=== PATIENT | female | born 1950 | race Caucasian/White ===

== ENCOUNTER → 2024-05-29 11:05 | Outpatient (REF) | payer MEDICARE, OTHER, SELFPAY | LOC: WDC 11:05 | PROVIDERS: ATTENDING PHYSICIAN Nurse Practitioner Adult Health; FAMILY PHYSICIAN Internal Medicine | DX: Z12.31 Encounter for screening mammogram for malignant neoplasm of breast (principal) | CPT/HCPCS: 77063; 77067 ==

== ENCOUNTER → 2025-02-13 08:16 | Outpatient (REF) | payer MEDICARE, OTHER, SELFPAY | LOC: RCS 08:16 | PROVIDERS: ATTENDING PHYSICIAN Family Medicine | DX: R07.89 Other chest pain (principal); Z82.49 Family history of ischemic heart disease and other diseases of the circulatory system | CPT/HCPCS: 93017; 93350 ==

== ENCOUNTER 2025-03-09 06:24 | Day surgery (SDC) | payer MEDICARE, OTHER, SELFPAY | END 2025-03-09 15:37 | disposition home or self-care (01) | LOC: GI 06:24 | PROVIDERS: ATTENDING PHYSICIAN Internal Medicine Gastroenterology | DX: K22.89 Other specified disease of esophagus (principal); K44.9 Diaphragmatic hernia without obstruction or gangrene; K21.00 Gastro-esophageal reflux disease with esophagitis, without bleeding | CPT/HCPCS: 43239; 88305 ==

== ENCOUNTER → 2025-05-16 12:56 | Outpatient (REF) | payer MEDICARE, OTHER, SELFPAY | LOC: HWRAD 12:56 | PROVIDERS: ATTENDING PHYSICIAN Family Medicine | DX: E78.00 Pure hypercholesterolemia, unspecified (principal) | CPT/HCPCS: 75571 ==

== ENCOUNTER → 2025-06-04 13:58 | Outpatient (REF) | payer MEDICARE, OTHER, SELFPAY | LOC: WDC 13:58 | PROVIDERS: ATTENDING PHYSICIAN Nurse Practitioner Adult Health; FAMILY PHYSICIAN Family Medicine; OTHER PHYSICIAN Physician Assistant | DX: M81.0 Age-related osteoporosis without current pathological fracture (principal); Z12.31 Encounter for screening mammogram for malignant neoplasm of breast | CPT/HCPCS: 77063; 77067; 77080 ==

== ENCOUNTER 2025-06-08 07:57 | Emergency (ER) | payer MEDICARE, OTHER, SELFPAY ==
[2025-06-08 07:58] VITALS: BP 179/83
--- NOTE | 2025-06-08 08:22 | ED.GENMED ---
History of Present Illness
General
Chief Complaint: Chest Pain
Source: patient
Exam Limitations: none
Time Seen by Provider: 06/08/25 08:22
Nursing documentation reviewed up to this point in time: agreed with
History of Present Illness
History of Present Illness:
75-year-old female with no clinically significant past medical history presents for chest pain. She states 9 AM yesterday while she was walking one of her horses up an incline she developed left upper chest pressure 5/10 which then waxed and waned
all day up to bedtime, it woke her at 4 AM with a pressure sensation in her left jaw. She states the symptoms are present now but to a lesser extent. She also felt a little more short of breath yesterday associated with the symptoms. She denies
feeling lightheaded or dizzy or weak.
Past History
Past History
ED Past Medical History: None
ED Past Surgical History: Orthopedic
Social History
Tobacco: Non-smoker
Alcohol: Occasional
Personal:
Living: alone
Review of Systems
Review of Systems
Allergies reviewed?: Yes
All Other Systems: ROS reviewed and negative except as documented in HPI and ROS
Constitutional: Denies fever or fatigue
Respiratory: Denies trouble breathing
Cardiac: Reports chest pain (very mild now left upper chest and teodora); Denies diaphoresis or palpitations
ABD/GI: Denies abdominal pain or nausea
Musculoskeletal: Reports no symptoms
Skin: Reports no symptoms
Neurological: Reports no symptoms
Phy Exam
Physical Exam
Physical Exam:
GENERAL: No acute distress. A&Ox3.
CONSTITUTIONAL: Afebrile.
EYES: clear, conjunctivae normal
ENMT: moist mucus membranes
RESPIRATORY: Regular respirations, nonlabored, lungs clear.
CARDIOVASCULAR: Regular rate and rhythm, no murmurs, no rubs.
GI: Soft, nontender
MUSCULOSKELETAL: Moves with ease. Well perfused.
SKIN: Warm, dry, pink
PSYCH: Normal mood and affect. Well kept, interactive and appropriate
NEUROLOGIC: Awake, alert and oriented. No focal neurological deficits
Scores
Heart Score for Chest Pain Patients
STEMI patient?: Not applicable
Course
Orders/Labs/Results
Orders:
Orders
06/08/25 08:00
Electrocardiogram (*1) Urgent
Reason for Study: Chest Pain
EKG- Treatment ONCE
06/08/25 08:41
CR Chest - 2 Views Urgent
Comment:
Reason For Exam: suspected infection
06/08/25 09:43
Complete Blood Count/With Diff Urgent
Comprehensive Metabolic Panel Urgent
Troponin I Urgent
06/08/25 09:46
Aspirin Chewable [Low Strength Aspirin] 324 mg PO NOW STA
06/08/25 12:24
Troponin I Urgent
06/08/25 12:29
Electrocardiogram (*1) Urgent
Reason for Study: Chest Pain
06/08/25 12:30
EKG- Treatment ONCE
Abnormal Lab Results
06/08/25
09:43
MCHC 32.8 L g/dL
(33.0-37.0)
Chloride 108 H mmol/L
(98-107)
Creatinine 0.5 L mg/dL
(0.6-1.0)
Total Bilirubin 1.4 H mg/dl
(0.2-1.3)
06/08/25 09:43
06/08/25 09:43
Vital Signs
Initial and Last Documented VS:
Initial Vital Signs
Temp Pulse Resp BP Pulse Ox
98.2 F 60 16 179/83 99
06/08/25 07:58 06/08/25 07:58 06/08/25 07:58 06/08/25 07:58 06/08/25 07:58
Last Documented Vital Signs
Temp Pulse Resp BP Pulse Ox
98.2 F 61 24 168/76 100
06/08/25 07:58 06/08/25 13:00 06/08/25 13:00 06/08/25 13:00 06/08/25 11:47
MDM/Problems Addressed
Differential Diagnosis Includes:
ACS, NE, unstable angina
MDM/Problems Addressed:
75-year-old female with no clinically significant past medical history presents for chest pain. She states 9 AM yesterday while she was walking one of her horses up an incline she developed left upper chest pressure 5/10 which then waxed and waned
all day up to bedtime, it woke her at 4 AM with a pressure sensation in her left jaw. She states the symptoms are present now but to a lesser extent. She also felt a little more short of breath yesterday associated with the symptoms. She denies
feeling lightheaded or dizzy or weak.
She took a baby aspirin this morning
EKG: Sinus bradycardia with a rate of 57
Chest x-ray: NAD
9:50 a.m.
In to re evaluate, pt asymptomatic at this time
10:00 AM:
CBC, CMP normal
Troponin normal
1:10 PM:
Troponin #2 within normal limits
EKG unchanged
She has a scheduled cardiac appointment for July 05 Dr. Baldwin, I will send her information to the cardiac hotline for a sooner appointment.
Patient stable for discharge
*Pulse Oximetry
SaO2: 99
Oxygen Mode of Delivery: Room air
Patient hypoxic: no
*EKG
EKG Intrepretation Date: 06/08/25
Interpretation: abnormal
Comparison EKG: no changes
Heart Rate: 57
Rate: bradycardiac
Rhythm: sinus
[place]: normal axis
Interval: normal interval
QRS Pattern: normal QRS
Ischemia: no ischemia
*Critical Care Note
Total Time (30-74mins, 75-104mins- exclusive of procedures): Not Applicable
ED Attending Note
-
Portions of this chart may have been created with voice recognition software.� Occasional wrong word or��sound alike� substitutions may have occurred due to the inherent limitations of voice recognition software.
Discharge Plan
Departure
Patient Disposition: Home (Routine Discharge)
Date of Disposition: 06/08/25
Time of Disposition: 13:11
Patient with high blood pressure during this ER visit?: No
Condition: Good
Discharge Problem:
Atypical chest pain
Instructions: Chest Pain DCA Follow Up
Prescriptions:
No Action
prochlorperazine maleate 10 MG tablet
10 mg PO Q8HPRN PRN (Reason: headache and nausea) Qty: 12 0RF
Referrals:
Rupinder Pham MD [Family Provider, [facility]]
Activity Restrictions/Additional Instructions:
As we discussed, nothing worrisome in your workup here today. Specifically no sign of a heart attack
I sent your contact information to the [facility], someone should be calling you within the next 2 days to determine if your appointment can be moved up.
Return here immediately for worsening chest pain, chest pain associate with shortness of breath, feeling weak or dizzy, nausea or vomiting or feeling sicker in any way.
Interventions
Interventions:
*Risk Screen - Suicide Last Done: 06/08/25 07:58
*Neglect/Abuse Screening Last Done: 06/08/25 07:58
Discharge Date and Time
Print Language: SUDANESE
[2025-06-08 09:57] LABS: Hematocrit 39.6 % (37.0-47.0); Hemoglobin 13.0 g/dL (12.0-16.0); Mean Corp Hgb Conc. 32.8 g/dL (33.0-37.0); Mean Corpuscular Volume 92.1 fL (81.0-99.0); Nucleated Red Blood Cells % 0 %; Platelet Count 225 10^3/uL (130-400); Red Cell Dist. Width 13.5 % (11.5-14.5)
[2025-06-08 10:18] LABS: ALT (SGPT) 24 U/L (0-35); AST (SGOT) 25 U/L (14-36); Albumin 4.2 g/dl (3.5-5.0); Alkaline Phosphatase 51 U/L (38-126); Blood Urea Nitrogen 16 mg/dl (7-17); Calcium 9.4 mg/dl (8.4-10.2); Carbon Dioxide 29 mmol/L (22-30); Chloride 108 mmol/L (98-107); Glucose 89 mg/dl (70-99); Potassium 3.9 mmol/L (3.5-5.1); Sodium 142 mmol/L (135-145); Total Protein 6.7 g/dl (6.3-8.2); eGFR > 60.00
[2025-06-08 10:40] LABS: Troponin I < 0.012 ng/ml
[2025-06-08] MEDS: LOW STRENGTH ASPIRIN 324 MG PO (11:09)
[2025-06-08 11:10] VITALS: BP 130/90
[2025-06-08 12:08] VITALS: BP 169/84
[2025-06-08 12:27] VITALS: BP 159/81
[2025-06-08 13:00] VITALS: BP 168/76
[2025-06-08 13:08] LABS: Troponin I < 0.012 ng/ml
== END 2025-06-08 13:25 | disposition home or self-care (01) ==
LOC: EMR 07:57
PROVIDERS: Registered Nurse; EMERGENCY PHYSICIAN Emergency Medicine; FAMILY PHYSICIAN Family Medicine
DX: R07.89 Other chest pain (principal)
CPT/HCPCS: 99283; 71046; 80053; 84484; 85025; 93005